=== PATIENT | male | born 1955 | race Caucasian/White ===

== ENCOUNTER 2022-05-21 08:29 | Outpatient (CLI) | payer MEDICARE, BC, SELFPAY | END 2022-05-21 08:30 | disposition home or self-care (01) | LOC: NFLDREF 05-29 11:53 | PROVIDERS: PCP Family Medicine; Referring Provider Family Medicine; Visit Provider Family Medicine | DX: Z00.00 Encounter for general adult medical examination without abnormal findings (principal); E78.5 Hyperlipidemia, unspecified; I10 Essential (primary) hypertension; Z12.5 Encounter for screening for malignant neoplasm of prostate | CPT/HCPCS: 80048; 80061; 84153 ==

== ENCOUNTER 2023-05-29 07:58 | Outpatient (CLI) | payer MEDICARE, BC, SELFPAY | END 2023-05-29 07:59 | disposition home or self-care (01) | LOC: NFLDREF 06-01 06:25 | PROVIDERS: PCP Family Medicine; Referring Provider Family Medicine; Visit Provider Family Medicine | DX: I10 Essential (primary) hypertension (principal); E78.5 Hyperlipidemia, unspecified; Z12.5 Encounter for screening for malignant neoplasm of prostate | CPT/HCPCS: 80053; 80061; G0103 ==

== ENCOUNTER 2023-07-28 09:15 | Outpatient (CLI) | payer MEDICARE, BC, SELFPAY ==
--- NOTE | 2023-07-28 10:41 | W.ANESCHARGE ---
Anesthesia Charges Start Date/Time Anesthesia Start Date: 07/28/23 Anesthesia Start Time: 10:06 Stop Date/Time Anesthesia Stop Date: 07/28/23 Anesthesia Stop Time: 10:38
--- NOTE | 2023-07-28 11:32 | W.ANESCHARGE ---
Anesthesia Charges Start Date/Time Anesthesia Start Date: 07/28/23 Anesthesia Start Time: 10:06 Stop Date/Time Anesthesia Stop Date: 07/28/23 Anesthesia Stop Time: 10:38
== END 2023-07-28 09:16 | disposition home or self-care (01) ==
LOC: OP CLINIC 09:16
PROVIDERS: PCP Family Medicine; Visit Provider Surgery
DX: Z12.11 Encounter for screening for malignant neoplasm of colon (principal); K57.30 Diverticulosis of large intestine without perforation or abscess without bleeding
CPT/HCPCS: 00811; 00812; 45378; J2704

== ENCOUNTER 2023-11-26 08:40 | Outpatient (CLI) | payer MEDICARE, BC, SELFPAY | END 2023-11-26 08:41 | disposition home or self-care (01) | LOC: LKVREF 08:41 | PROVIDERS: PCP Family Medicine; Visit Provider Family Medicine | DX: E78.5 Hyperlipidemia, unspecified (principal); I25.10 Atherosclerotic heart disease of native coronary artery without angina pectoris | CPT/HCPCS: 80061; 80076 ==

== ENCOUNTER 2024-06-24 08:58 | Outpatient (CLI) | payer MEDICARE, BC, SELFPAY | END 2024-06-24 08:59 | disposition home or self-care (01) | LOC: NFLDREF 06-29 20:35 | PROVIDERS: PCP Family Medicine; Referring Provider Family Medicine; Visit Provider Family Medicine | DX: I10 Essential (primary) hypertension (principal); E78.5 Hyperlipidemia, unspecified; R53.83 Other fatigue; Z12.5 Encounter for screening for malignant neoplasm of prostate | CPT/HCPCS: 80053; 80061; 84443; G0103 ==

== ENCOUNTER 2024-07-12 12:53 | Outpatient (CLI) | payer MEDICARE, BC, SELFPAY ==
--- NOTE | 2024-07-12 13:45 | P.STN_ITS ---
Stress Test Note Date Date Seen: 07/12/24 Date of test: 07/12/24 Providers Primary care provider: [place] Stress test physician: Ernestine Simon Stress Test Note Stress test ordered: Stress Echo Indication for test: Episode AFib with syncope, history abnormal calcium score Stress test medicine: None Results discussion: Resting EKG: Sinus rhythm, 64 beats per minute. Resting blood pressure: 169/82 Stress test: Patient is consented on ordered stress test of a exercise treadm ill stress echo and he agrees to proceed. Hai protocol is followed. Patient exercises for a total of 9 minutes 59 seconds, stopping due to reaching exercise capacity as well as meeting target heart rate. This is equivalent exercise level of 11.5 Mets. He had a maximal heart rate of 138 beats per minute which was 107% of a calculated target heart rate of 128. This gives him a rate pressure product of 20,976. Patient developed no chest pain, no concerning symptoms during the stress test. He had mild shortness of breath at the peak of exercise but was not unexpected for his level of exercise per patient report. He did have occasional PVCs seen in recovery. They are otherwise was no arrhythmia, no diagnostic EKG changes of ischemia. Await echo images to couple this for a full formal diagnostic test. Impression: Subjectively negative and objectively negative EKG portion of this stress test. Follow up suggested: Patient's discharge from the stress test in stable condition. He will await the echo images to be read by Cardiology and his primary to get the formal report.
[2024-07-12 13:55] VITALS: BP 162/68; PULSE 89; RESP 16
== END 2024-07-12 12:54 | disposition home or self-care (01) ==
PROVIDERS: PCP Family Medicine; Visit Provider Family Medicine
DX: I48.91 Unspecified atrial fibrillation (principal); I25.10 Atherosclerotic heart disease of native coronary artery without angina pectoris; R55 Syncope and collapse
CPT/HCPCS: 93016; 93325; 93351